=== PATIENT | male | born 1985 | race Caucasian/White ===

== ENCOUNTER 2018-06-04 08:07 | Day surgery (SDC) | payer OTHER ==
[~2018-06-04 08:07] MED LIST: Bupivacaine 0.5% 50 ML MDV ONE; Lidocaine 1% with EPINEPHrine 1:100,000 50 ML MDV ONE
[2018-06-04] MEDS ORDERED: Sodium Chloride 0.9% 1,000 ML IV SCH (08:30)
[2018-06-04] MEDS ORDERED: ceFAZolin 2 GM in Premix Bag 1 BAG IV ONE (09:15)
[2018-06-04] MEDS ORDERED: metroNIDAZOLE/Normal Saline 500 MG in Premix Bag 1 BAG IV ONE (09:15)
[2018-06-04] MEDS ORDERED: Propofol 200 MG/20 ML SDV ONE ×3 (09:17→10:06)
[2018-06-04] MEDS ORDERED: Midazolam 1 MG/ML 2 ML SDV ONE (09:17)
[2018-06-04] MEDS ORDERED: fentaNYL 100 MCG/2 ML SDV ONE ×2 (09:17→09:29)
[2018-06-04] MEDS ORDERED: Ropivacaine 60 ML, Dexamethasone 8 MG, EPINEPHrine 0.4 MG, Sodium Chloride 0.9% 17.6 ML NERVRT SCH ×4 (09:30)
[2018-06-04] MEDS ORDERED: hydrOXYzine HCl 100 MG/2 ML SDV IM ONE (10:37)
[2018-06-04] MEDS ORDERED: fentaNYL 100 MCG/2 ML SDV IVPUSH ONE (10:37)
[2018-06-04] MEDS ORDERED: Acetaminophen/HYDROcodone 325-5 MG Tab PO PRN (11:21)
--- NOTE | 2018-06-05 09:41 | OR ---
DATE OF PROCEDURE: 06/04/2018 PROCEDURE: Left inguinal hernia repair, open. COMPLICATIONS: None. SURGEON: Mario Mathur MD BAR SUPERVISOR: None. ANESTHESIA: MAC/local. RISKS: Risks, benefits, alternatives, and limitations including, but not limited to infection, bleeding, and injury to bowel or bladder along with testicular artery, vas deferens injuries were all explained to the patient, who wished to proceed. PROCEDURE IN DETAIL: The patient was placed in supine position. The left groin was prepped and draped. The patient had a rather large body habitus. A curvilinear type incision was made over the ring structures to the lateral side of the pubic symphysis. This was carried down through large amount of fat up to the external oblique aponeurosis, which was then opened with a back of a 15 blade. Metzenbaum scissors were used to further open this. The indirect turning hernia was identified and would be dissected freely. Cord structures were identified, and the Dot drain was able to be removed around this without difficulty. Sac and large lipoma structures were mobilized. First, structures were from this freely along during the blunt dissection. As this continued, the cord structures were fully mobilized. Careful attention was made not to damage the testicular artery, vein, and associated vas deferens. An extra-large plug and patch was then able to be placed in without difficulty. This was placed and secured with a combination of tacking and sewing. This was also proximally to the pubic symphysis without difficulty. The tail was wrapped around the cord structures. This was also secured in place. External oblique aponeurosis was closed with 3-0 Vicryl in a running fashion. All layers were thoroughly irrigated. Subcutaneous tissues were approximated. The skin was closed with 4-0 Vicryl. The patient tolerated the procedure well. Mario Mathur MD /[id number]
--- NOTE | 2018-06-05 09:42 | OR ---
DATE OF PROCEDURE: 06/04/2018 PROCEDURE: Transversus abdominis plane block, bilaterally. COMPLICATION: None. SURGEON: Mario Mathur MD STAFF RESEARCH ASSOCIATE: None. RISKS: Risks, benefits, alternatives, limitations including, but not limited to infection, bleeding, injury to abdominal structures were all explained to the patient today, who wished to proceed. PROCEDURE IN DETAIL: The patient was placed in supine position. The right transverse plane was identified first. The patient had very poor fascial planes due to his body habitus. Nonetheless, correct plane was identified, 80% of solution was injected under direct visualization. The other side was addressed in same manner, same fashion, same technique, and same sequence using the same ultrasound except for different needle and syringe. The same amount of volume was injected. Dressings were applied. The patient tolerated the procedure well. Mario Mathur MD /[id number]
== END 2018-06-04 12:20 | disposition home or self-care (01) ==
LOC: JP.SDS 08:07
PROVIDERS: ATTEND Surgery
DX: D17.6 Benign lipomatous neoplasm of spermatic cord (principal); K40.90 Unilateral inguinal hernia, without obstruction or gangrene, not specified as recurrent; E66.01 Morbid (severe) obesity due to excess calories; Z68.42 Body mass index [BMI] 45.0-49.9, adult; Z88.0 Allergy status to penicillin; Z88.2 Allergy status to sulfonamides
CPT/HCPCS: A9270-GY; C1781; J0171; J0690; J1100; J2250; J2704; J2795; J3010; J3410; J3490; J7030; J7050